=== PATIENT | female | born 1965 | race Caucasian/White ===

== ENCOUNTER 2017-04-01 14:54 | Emergency (ER) | payer OTHER ==
[2017-04-01 15:12] VITALS: BP 1424/82
== END 2017-04-01 17:40 | disposition home or self-care (01) ==
LOC: ED 14:54
DX: S61.412A Laceration without foreign body of left hand, initial encounter (principal); I10 Essential (primary) hypertension; W26.0XXA Contact with knife, initial encounter; Y93.89 Activity, other specified; Y99.8 Other external cause status; Y92.89 Other specified places as the place of occurrence of the external cause
CPT/HCPCS: 90715; J2001; J3490

== ENCOUNTER 2017-04-08 14:29 | Emergency (ER) | payer OTHER ==
[2017-04-08 14:34] VITALS: BP 133/69
== END 2017-04-08 15:11 | disposition home or self-care (01) ==
LOC: ED 14:29
DX: S61.412D Laceration without foreign body of left hand, subsequent encounter (principal); I10 Essential (primary) hypertension; Z79.899 Other long term (current) drug therapy; X58.XXXD Exposure to other specified factors, subsequent encounter; Y92.89 Other specified places as the place of occurrence of the external cause; Y99.8 Other external cause status